=== PATIENT | male | born 1980 | race Caucasian/White ===

== ENCOUNTER → 2018-01-19 11:17 | Outpatient (REF) | payer OTHER, SELFPAY ==
[2018-01-19 13:40] LABS: Amphetamine/Metha Screen,Urine Negative ng/mL (<1000); Barbiturates Screen,Urine Negative ng/mL (<200); Benzodiazepines Screen,Urine Negative ng/mL (200); Cannabinoid Screen,Urine Positive ng/mL (<50); Cocaine Screen,Urine Negative ng/g (<300); Methadone Screen,Urine Negative ng/mL (<300); Opiate Screen,Urine Positive ng/mL (<300); Phencyclidine Screen,Urine Negative ng/mL (<25)
== END ==
LOC: LAB 11:17
PROVIDERS: Visit Provider Emergency Medicine
DX: Z79.899 Other long term (current) drug therapy (principal)
CPT/HCPCS: 80305

== ENCOUNTER → 2018-02-17 14:10 | Outpatient (REF) | payer OTHER, SELFPAY ==
[2018-02-17 20:08] LABS: Amphetamine/Metha Screen,Urine Positive ng/mL (<1000); Barbiturates Screen,Urine Negative ng/mL (<200); Benzodiazepines Screen,Urine Negative ng/mL (200); Cannabinoid Screen,Urine Positive ng/mL (<50); Cocaine Screen,Urine Negative ng/g (<300); Methadone Screen,Urine Negative ng/mL (<300); Opiate Screen,Urine Positive ng/mL (<300); Phencyclidine Screen,Urine Negative ng/mL (<25)
== END ==
LOC: LAB 14:10
PROVIDERS: Visit Provider Emergency Medicine
DX: Z79.899 Other long term (current) drug therapy (principal)
CPT/HCPCS: 80305

== ENCOUNTER → 2018-03-30 09:34 | Outpatient (REF) | payer OTHER, SELFPAY ==
[2018-03-30 14:10] LABS: Amphetamine/Metha Screen,Urine Negative ng/mL (<1000); Barbiturates Screen,Urine Negative ng/mL (<200); Benzodiazepines Screen,Urine Negative ng/mL (200); Cannabinoid Screen,Urine Positive ng/mL (<50); Cocaine Screen,Urine Negative ng/g (<300); Methadone Screen,Urine Negative ng/mL (<300); Opiate Screen,Urine Positive ng/mL (<300); Phencyclidine Screen,Urine Negative ng/mL (<25)
== END ==
LOC: LAB 09:34
PROVIDERS: Visit Provider Emergency Medicine
DX: Z79.899 Other long term (current) drug therapy (principal)
CPT/HCPCS: 80305

== ENCOUNTER → 2022-11-12 11:08 | Outpatient (CLI) | payer OTHER, SELFPAY ==
--- NOTE | 2022-11-12 11:41 | XR_ITS ---
FINAL REPORT CLINICAL HISTORY: left lower back pain radiating down left leg COMPARISON: none FINDINGS: AP, lateral, and oblique views of the lumbar spine were obtained. There is no acute fracture or acute malalignment. Vertebral body height is preserved. Mild degenerative disease, most pronounced at L2-3. No acute paraspinal abnormality is identified. IMPRESSION: No acute osseous abnormalities lumbar spine. Reviewed, Interpreted and Dictated by Miguelina Simeon MD Transcribed by Cait Perdomo Authenticated and [facility]
[2022-11-12 11:46] LABS: Basophils % 0.3 % (0.1-2.0); Eosinophils # 0.1 K/mm3 (0.0-0.4); Eosinophils % 0.6 % (0.1-12.0); Hemoglobin 16.8 g/dL (14.1-18.0); Lymphocytes # 1.8 K/mm3 (0.7-4.5); Lymphocytes % 13.4 % (10-50); Mean Corpuscular HGB Conc 32.9 g/dL (31.8-35.4); Mean Corpuscular Hemoglobin 32.7 pg (27.0-31.2); Mean Corpuscular Volume 99.4 fl (80-94); Mean Platelet Volume 9.7 fl (7.4-10.4); Monocytes # 0.8 K/mm3 (0.1-1.0); Monocytes % 6.1 % (1.7-9.3); Neutrophils # 10.4 K/mm3 (1.8-7.8); Neutrophils % 79.6 % (37.0-80.0); Platelet Count 261 K/mm3 (142-424); Red Blood Count 5.13 M/mm3 (4.60-6.20); Red Cell Distribution Width 13.4 % (11.5-17.5); White Blood Count 13.1 K/mm3 (4.8-10.8)
[2022-11-12 12:44] LABS: Alanine Aminotransferase 21 U/L (12-78); Albumin Level 4.7 g/dl (3.5-5.0); Albumin/Globulin Ratio 1.2 (1.1-1.8); Alkaline Phosphatase 66 U/L (38-126); Anion Gap 13.4 mEq/L (5-15); Aspartate Amino Transferase 30 U/L (17-59); Bilirubin,Total 0.4 mg/dl (0.2-1.3); Blood Urea Nitrogen 22 mg/dl (9-20); Calcium 9.3 mg/dl (8.4-10.2); Carbon Dioxide 27 mmol/L (22.0-30.0); Chloride 108 mmol/L (98-107); Estimated Glomerular Filt Rate 124 ml/min (>60); GFR (African American) 150 ML/MIN (>60); Globulin 3.8 g/dL (1.3-3.2); Glucose 106 mg/dl (74-100); Potassium 4.4 mmoL/L (3.5-5.1); Sodium 144 mmol/L (136-145); Total Protein,Serum 8.5 g/dl (6.3-8.2)
[2022-11-12 13:00] LABS: 25-OH Vitamin D, Total 30.4 ng/mL (30-100)
[2022-11-12 13:32] LABS: Vitamin B12 422 pg/mL (239-931)
== END ==
PROVIDERS: PCP Nurse Practitioner Family; Visit Provider Nurse Practitioner Family
DX: M54.42 Lumbago with sciatica, left side (principal); G62.9 Polyneuropathy, unspecified; R20.2 Paresthesia of skin; Z79.899 Other long term (current) drug therapy
CPT/HCPCS: 36415; 72110; 80053; 82306; 82607; 84443; 85025

== ENCOUNTER → 2022-12-09 15:00 | Outpatient (CLI) | payer OTHER, SELFPAY ==
--- NOTE | 2022-12-09 15:05 | MR_ITS ---
PROCEDURE INFORMATION: Exam: MR Cervical Spine Without Contrast Exam date and time: 12/09/2022 3:52 PM Age: 42 years old Clinical indication: Neck pain; Additional info: Left sided low back pain. Neck pain with numbness in right and left hand but right hand worse. TECHNIQUE: Imaging protocol: Magnetic resonance imaging of the cervical spine without contrast. COMPARISON: No relevant prior studies available. FINDINGS: Bones/joints: The cervical vertebral bodies are normal in height, without abnormal subluxation. The cervical lordosis is straightened. Spinal cord: Artifact limits evaluation of the cervical spinal cord on sagittal STIR images, without definitive cord edema on T2. No syrinx visualized involving the cervical spinal cord. Multilevel findings: Degenerative changes are noted at multiple cervical levels, with a decrease in the T2 signal intensity of the discs as well as disc bulge/osteophyte complexes. C2-C3: There is no significant spinal canal stenosis or neural foraminal narrowing. C3-C4: A small central disc herniation/protrusion is identified, with minimal to mild spinal canal stenosis. No significant neural foraminal narrowing bilaterally. C4-C5: Disc bulging visualized causing flattening of the ventral thecal sac, without significant spinal canal stenosis. No significant neural foraminal narrowing bilaterally. C5-C6: A central left-sided disc herniation/extrusion is visualized causing moderate spinal canal stenosis and slight flattening of the left ventral cervical spinal cord. Moderate left neural foraminal narrowing, with uncovertebral hypertrophy. No significant narrowing of the right neural foramen. C6-C7: Disc bulging visualized with hypertrophy of the ligamentum flavum causing mild spinal canal stenosis. No significant neural foraminal narrowing bilaterally. C7-T1: There is no significant spinal canal stenosis or neural foraminal narrowing. Soft tissues: No significant prevertebral soft tissue swelling. Brain: Cerebellar tonsillar ectopia visualized. The cerebellar tonsils extend approximately 4-5 mm below level the foramen magnum. The cerebellar tonsils are somewhat rounded in contour. Vasculature: A dominant right vertebral artery is identified. Evaluation of flow voids within the vertebral arteries is technically limited. IMPRESSION: 1. Degenerative changes are noted at multiple cervical levels, as described above. 2. At C5-C6, a central left-sided disc herniation/extrusion is visualized causing moderate spinal canal stenosis and slight flattening of the left ventral cervical spinal cord. 3. At C3-C4, a small central disc herniation/protrusion is identified, with minimal to mild spinal canal stenosis. 4. Mild spinal canal stenosis at C6-C7. 5. Moderate left neural foraminal narrowing at C5-C6. 6. Cerebellar tonsillar ectopia. 7. The cervical lordosis is straightened. This can be associated with muscle spasms.
== END ==
PROVIDERS: PCP Nurse Practitioner Family; Visit Provider Nurse Practitioner Family
DX: M54.42 Lumbago with sciatica, left side (principal); G62.9 Polyneuropathy, unspecified; M54.2 Cervicalgia
CPT/HCPCS: 72141; 76376

== ENCOUNTER 2023-08-13 12:34 | Emergency (ER) | payer OTHER, SELFPAY ==
[2023-08-13 12:36] VITALS: BP 138/94; PULSE 64; RESP 16; TEMP 36.8; O2SAT 94; BMI 52.9
--- NOTE | 2023-08-13 13:25 | EXP.UTC ---
Discharge Plan Disposition Patient Disposition: Home, Self-Care Condition: Good Prescriptions Prescriptions: New guaifenesin [Mucinex] 600 mg tablet extended release 12hr 1,200 mg PO BID PRN (Reason: cough) Qty: 20 0RF azithromycin [Zithromax Z-Genaro] 250 mg tablet See Rx Instructions .ROUTE .COMPLEX 5 Days Qty: 6 0RF Rx Instructions: For 250 mg dose pack: take 500 mg today (day 1), then 250 mg for 4 days (days 2-5) methylprednisolone [Medrol (Genaro)] 4 mg tablets,dose pack See Rx Instructions .Route .COMPLEX 6 Days Qty: 21 0RF Rx Instructions: taper pack; albuterol sulfate [Proventil HFA] 90 mcg/actuation HFA aerosol inhaler 1 - 2 inh inhalation Q6H PRN (Reason: shortness of breath or wheezing) Qty: 8.5 0RF fluticasone propionate [Flonase Allergy Relief] 50 mcg/actuation spray,suspension 1 - 2 spray intranasal DAILY Qty: 16 0RF Rx Instructions: administer into each nostril No Action clonidine HCl 0.2 mg tablet 0.2 mg PO Q12H Referrals Follow up/Referrals: Tamy Guevara APRN [Primary Care Provider] - See instructions Activity Restrictions/Add. Instructions Additional Instructions/Restrictions: Follow up with your Family Doctor if dizziness continues Take medication as prescribed Start antibiotic today. Be sure to complete entire prescription even if feeling better Monitor temp. Tylenol every 4 hours as needed and / or ibuprofen every 6 hours as needed ( As long as your primary care physician has told you that it ok to take both. For fever/aches/pains ER if no less than 101 despite Tylenol or Motrin Humidifier/vaporizer or hot steamy shower Inhaler every 4-6 hours as needed like we discussed. If unsure how to use it, ask pharmacist to demonstrate how. Should help open airways and improve cough, wheezing, and shortness of breath Mucinex for your cough Be sure to drink lots of water. *Start steroid today. Helps with inflammation therefore, cough and wheezing. Follow directions on the package. Reviewed side effects. Patient reports taking them before. Follow up IMMEDIATELY for new or worsening of symptoms OR no noticeable improvement over the next 48-72 hours. 911 immediately for any life threatening symptoms such as chest pain or difficulty breathing Clinical Impressions Clinical Impression: Bronchitis Sinusitis Qualifiers: Sinusitis location: unspecified location Chronicity: unspecified Qualified Code(s): J32.9 - Chronic sinusitis, unspecified Stand Alone Forms Stand Alone Forms: Work/School Release Instructions Patient Instructions: Sinusitis, Acute Bronchitis, DI for Sinusitis Discharge ED Provider: Destiny Linn [facility] [place] HPI General Stated complaint: dizzy, soa Mode of Arrival: Ambulatory Source of Information: Patient Limitations: No Limitations Time Seen by Provider: 08/13/23 13:25 Description of Symptoms (Recalled from Triage Doc. by RN): Patient reports shortness of breath, dizziness, cough and congestion for 4 days. HEENT Symptoms (Recalled from RN notes): Yes Resp Symptoms (Recalled from RN notes): No Skin Symptoms (Recalled from RN notes): No MS Symptoms (Recalled from RN notes): No Functional Status (Recalled from RN notes): wnl History of Present Illness Provider Complaint: Patient states that he has been sick for the last 4-5 days States that he has been having a productive cough at times, sinus congestion and pressure, chest congestion, feeling SOA after coughing, and dizziness at times States that today he was feeling a little better but still having pressure and congestion so he came in Denies dizziness at this time Related Data Home Medications Medication Instructions Recorded Confirmed clonidine HCl 0.2 mg tablet 0.2 mg PO Q12H 02/10/18 Previous Rx's Medication Instructions Recorded albuterol sulfate 90 mcg/actuation 1 - 2 inh inhalation Q6H PRN 08/13/23 aerosol
[2023-08-13 13:51] VITALS: BP 138/94; PULSE 64; RESP 16; TEMP 36.8; O2SAT 94
== END 2023-08-13 13:52 | disposition home or self-care (01) ==
PROVIDERS: Emergency Provider Nurse Practitioner; PCP Nurse Practitioner Family
DX: J20.9 Acute bronchitis, unspecified (principal); J01.90 Acute sinusitis, unspecified; F17.210 Nicotine dependence, cigarettes, uncomplicated
CPT/HCPCS: 99204; 99212; G0463

== ENCOUNTER 2024-02-22 15:11 | Emergency (ER) | payer OTHER, SELFPAY ==
[2024-02-22 15:55] VITALS: BP 137/90; PULSE 53; RESP 18; TEMP 37.1; O2SAT 100; BMI 35.6
--- NOTE | 2024-02-22 15:59 | ED_ITS ---
Discharge Plan Disposition Patient Disposition: Home, Self-Care Condition: Good Prescriptions Prescriptions: New sulfamethoxazole-trimethoprim [Bactrim DS] 800-160 mg Tablet 1 tab PO BID Qty: 20 0RF cephalexin 500 mg capsule 500 mg PO QID Qty: 40 0RF mupirocin 2 % ointment 1 applic topical TID 7 Days Qty: 15 0RF No Action clonidine HCl 0.2 mg tablet 0.2 mg PO Q12H albuterol sulfate [Proventil HFA] 90 mcg/actuation HFA aerosol inhaler 1 - 2 inh inhalation Q6H PRN (Reason: shortness of breath or wheezing) Qty: 8.5 0RF buprenorphine-naloxone 8-2 mg film See Rx Instructions .ROUTE .COMPLEX Patient Comments: DISSOLVE 1 AND 1/4 films UNDER THE TONGUE ONCE DAILY Rx Instructions: DISSOLVE 1 AND 1/4 films UNDER THE TONGUE ONCE DAILY Referrals Follow up/Referrals: Tamy Guevara APRN [Primary Care Provider] - See instructions Activity Restrictions/Add. Instructions Additional Instructions/Restrictions: Keep the affected area clean and dry. Follow up with your regular doctor. Take the antibiotics as directed and apply the topical antibiotics as directed. Apply warm wet compresses to the affected area three or four times per day. If you have itching at the site take over the counter benedryl. It will make you drowsy so don't drive or operate heavy machinery after taking it. GO TO THE ER FOR ANY WORSENING SYMPTOMS Clinical Impressions Clinical Impression: Tick bite, Cellulitis Instructions Patient Instructions: Cellulitis, DI for Insect Bites and Stings, Ceftriaxone Injection Discharge ED Provider: Adalid Jackman [facility] [place] General Stated complaint: tick bite/rash on left collar bone itching Time Seen by Provider: 02/22/24 15:59 History of Present Illness Provider Complaint: He states that 3 days ago he found a very small tick embedded on his left collar bone area. He removed the tick, but since then he has had worsening redness and swelling at the site. He is also have worsening itching at the site. He denies fever/chills/malaise. Related Data Home Medications Medication Instructions Recorded Confirmed clonidine HCl 0.2 mg tablet 0.2 mg PO Q12H 02/10/18 buprenorphine 8 mg-naloxone 2 mg See Rx Instructions .Route .COMPLEX 02/22/24 02/22/24 sublingual film Previous Rx's Medication Instructions Recorded albuterol sulfate 90 mcg/actuation 1 - 2 inh inhalation Q6H PRN 08/13/23 aerosol inhaler (Proventil HFA) shortness of breath or wheezing #8.5 grams cephalexin 500 mg capsule 500 mg PO QID #40 caps 02/22/24 mupirocin 2 % topical ointment 1 applic topical TID 7 days #15 02/22/24 grams sulfamethoxazole 800 1 tab PO BID #20 tabs 02/22/24 mg-trimethoprim 160 mg tablet (Bactrim DS) Allergies Allergy/AdvReac Type Severity Reaction Status Date / Time hydrocodone Allergy Intermediate Verified 02/22/24 16:16 [facility] Disclaimer: The information contained in this section may have been updated after the patient was seen, as this information can be updated by other users. Social History Smoking Status: Current every day smoker tobacco type: cigarettes packs per day: 10 alcohol intake: never substance use type: denies use current occupational status: employed Travel in the last 8 weeks: None household members: family housing: house ROS Obtained: Yes All systems reviewed & no additional complaints except as documented Constitutional Constitutional: Denies chills and Denies fever(s) Eyes Eyes: Denies eye discharge ENT Ears, Nose, Mouth, and Throat: Denies dizziness, Denies otalgia and Denies sore throat Cardiovascular Cardiovascular: Denies chest pain Respiratory Respiratory: Denies shortness of breath, Denies chest congestion, Denies cough, Denies stridor and Denies wheezing Gastrointestinal Gastrointestingal: Denies nausea or vomiting Musculoskeletal Musculoskeletal: Reports system reviewed and no additional complaints, except as documented and Denies arthralgias Integumentary/Breasts Skin/Breast: Reports as per HPI, Reports redness and Reports rash Neurologic Neurologic: Denies dizziness and Denies paresthesias Allergic/Immunologic Allergic/Immunologic: Denies wheezing Physical Exam General General appearance: alert and in no apparent distress Head Head exam: atraumatic, normocephalic and normal inspection Eye Eye exam: Present normal appearance, PERRL and EOMI ENT ENT exam: Present normal exam, normal oropharynx, mucous membranes moist, TM's normal bilaterally and normal external ear exam Neck Neck exam: Present normal inspection, full ROM and trachea midline; Absent meningismus or lymphadenopathy Chest Chest inspection: Present normal inspection and symmetric chest wall rise; Absent tenderness Respiratory Respiratory exam: Present normal lung sounds bilaterally; Absent respiratory distress Cardiovascular Cardiovascular exam: Present regular rate and normal rhythm; Absent JVD Abdominal Exam Abdominal exam: Present soft and normal bowel sounds; Absent distention, tenderness or guarding Extremities Exam Extremities exam: Present normal inspection, full ROM and normal capillary refill; Absent calf tenderness Back Exam Back exam: Present normal inspection; Absent tenderness Neurological Exam Neurological exam: Present alert and oriented X3 Psychiatric Psychiatric exam: Present normal affect and normal mood Skin Skin exam: Present erythema (There is an area of redness on his left upper chest that measures 2 cm X 4 cm. In its center there is a small scabbed area. There is no embedded tick parts. No drainage, no induration. ) Lymphatic Lymphatic Findings: no adenopathy Medical Decision Making Medical Records Medical records reviewed: No I reviewed the patient's medical records. Thiago Inquiry Pt receiving controlled substance: No
[2024-02-22] MEDS: cefTRIAXone 1GM VIAL 1 GM IM (16:57)
[2024-02-22] MEDS: LIDOCAINE 1% 5ML PF VIAL IM (16:57)
[2024-02-22 17:13] VITALS: BP 137/90; PULSE 53; RESP 18; TEMP 37.1; O2SAT 100
== END 2024-02-22 17:13 | disposition home or self-care (01) ==
PROVIDERS: Emergency Provider Nurse Practitioner Family; PCP Nurse Practitioner Family
DX: L03.313 Cellulitis of chest wall (principal); S20.362A Insect bite (nonvenomous) of left front wall of thorax, initial encounter; F17.210 Nicotine dependence, cigarettes, uncomplicated; W57.XXXA Bitten or stung by nonvenomous insect and other nonvenomous arthropods, initial encounter
CPT/HCPCS: 96372; 99212; 99214; G0463; J0696

== ENCOUNTER 2024-04-26 14:15 | Emergency (ER) | payer OTHER, SELFPAY ==
[2024-04-26 14:25] VITALS: BP 143/96; PULSE 73; RESP 20; TEMP 37.1; O2SAT 98; BMI 33.1
--- NOTE | 2024-04-26 14:43 | EXP.UTC ---
Discharge Plan Disposition Patient Disposition: Home, Self-Care Condition: Good Prescriptions Prescriptions: New mupirocin 2 % ointment 1 applic topical BID Qty: 22 0RF No Action buprenorphine-naloxone 8-2 mg film See Rx Instructions .ROUTE .COMPLEX Patient Comments: DISSOLVE 1 AND 1/4 films UNDER THE TONGUE ONCE DAILY Rx Instructions: DISSOLVE 1 AND 1/4 films UNDER THE TONGUE ONCE DAILY Referrals Follow up/Referrals: Tamy Guevara APRN [Primary Care Provider] - See instructions Activity Restrictions/Add. Instructions Additional Instructions/Restrictions: treatment measures for any spider bite include: ?Clean the bite with antibacterial soap and rinse with water. ?Apply ice packs with something between the pack and the skin for 20 minutes at a time; 3 times a day ?Elevate site to decrease swelling Apply antibiotic ointment as prescribed. Watch for signs of infection such redness, swelling, developing necrosis or pus then return to the clinic or go to you PCP. Clinical Impressions Clinical Impression: Spider bite Instructions Patient Instructions: DI for Spider Bites Discharge ED Provider: Michelle Velasquez [facility] [place] General Stated complaint: spider bite right foot Mode of Arrival: Ambulatory Source of Information: Patient Limitations: No Limitations Time Seen by Provider: 04/26/24 14:43 Description of Symptoms (Recalled from Triage Doc. by RN): PATIENT C/O SPIDER BITE TO RIGHT ANKLE YESTERDAY HEENT Symptoms (Recalled from RN notes): No Resp Symptoms (Recalled from RN notes): No Skin Symptoms (Recalled from RN notes): Yes MS Symptoms (Recalled from RN notes): No Functional Status (Recalled from RN notes): WNL History of Present Illness Provider Complaint: Pt states that he feels as if he has been bitten by a brown recluse spider bite. He states that he was bitten last night and today there is a little more redness and a small blister in the center of the bite area. He states that the site if very itchy. He reports that he had his last tetanus at 12 yo. Related Data Home Medications Medication Instructions Recorded Confirmed buprenorphine 8 mg-naloxone 2 mg See Rx Instructions .Route .COMPLEX 02/22/24 04/26/24 sublingual film Previous Rx's Medication Instructions Recorded mupirocin 2 % topical ointment 1 applic topical BID #22 grams 04/26/24 Allergies Allergy/AdvReac Type Severity Reaction Status Date / Time hydrocodone Allergy Intermediate Verified 02/22/24 16:16 Worker's Comp Is this a Worker's Comp case?: No [facility] Disclaimer: The information contained in this section may have been updated after the patient was seen, as this information can be updated by other users. Medical History (Updated 04/26/24 @ 15:06 by Michelle Velasquez APRN) Hypertension Social History Smoking Status: Current every day smoker tobacco type: cigarettes packs per day: 10 alcohol intake: never substance use type: denies use current occupational status: employed Travel in the last 8 weeks: None household members: family housing: house ROS Obtained: Yes All systems reviewed & no additional complaints except as documented Constitutional Constitutional: Reports system reviewed and no additional complaints, except as documented Eyes Eyes: Reports system reviewed and no additional complaints, except as documented ENT Ears, Nose, Mouth, and Throat: Reports system reviewed and no additional complaints, except as documented Cardiovascular Cardiovascular: Reports system reviewed and no additional complaints, except as documented Respiratory Respiratory: Reports system reviewed and no additional complaints, except as documented Gastrointestinal Gastrointestingal: Reports system reviewed and no additional complaints, except as documented Genitourinary Male Genitourinary: Reports system reviewed and no additional complaints, except as documented Musculoskeletal Musculoskeletal: Reports system reviewed and no additional complaints, except as documented Integumentary/Breasts Skin/Breast: Reports system reviewed and no additional complaints, except as documented, Reports redness and Reports pruritus Neurologic Neurologic: Reports system reviewed and no additional complaints, except as documented Endocrine Endocrine: Reports system reviewed and no additional complaints, except as documented Hematologic/Lymphatic Henatologic/Lymphatic: Reports system reviewed and no additional complaints, except as documented Allergic/Immunologic Allergic/Immunologic: Reports system reviewed and no additional complaints, except as documented Physical Exam General General appearance: alert and in no apparent distress Head Head exam: atraumatic and normocephalic Eye Eye exam: Present normal appearance ENT ENT exam: Present normal exam and normal oropharynx Neck Neck exam: Present normal inspection Chest Chest inspection: Present normal inspection and symmetric chest wall rise Respiratory Respiratory exam: Present normal lung sounds bilaterally Cardiovascular Cardiovascular exam: Present regular rate, normal rhythm and normal heart sounds Abdominal Exam Abdominal exam: Present soft and normal bowel sounds Extremities Exam Extremities exam: Present normal inspection Back Exam Back exam: Present normal inspection Neurological Exam Neurological exam: Present alert and oriented X3 Psychiatric Psychiatric exam: Present normal affect and normal mood Skin Skin exam: Present other Expanded Skin Exam Type of lesion: Present bite/sting Distribution: RLE Description: Present size (pen head sized with raised center like blister. Slight redness around site ) and erythematous Lymphatic Lymphatic Findings: no adenopathy Medical Decision Making Thiago Inquiry Pt receiving controlled substance: No Thiago was queried for this patient: No Vital Signs: 04/26/24 14:25 Temperature 98.8 F Temperature Source Oral Pulse Rate [Left Brachial] 73 Respiratory Rate 20 Blood Pressure [Left Arm] 143/96 H Blood Pressure Mean [Left Arm] 111 Blood Pressure Source [Left Arm] Automatic Cuff Blood Pressure Position [Left Arm] Sitting 02 Sat by Pulse Oximetry 98 Oxygen Delivery Method Room Air
[2024-04-26] MEDS: TET/DIPHTH/PERT-ADULT 0.5ML SYRINGE 0.5 ML IM (14:57)
[2024-04-26 15:06] VITALS: BP 143/96; PULSE 73; RESP 20; TEMP 37.1; O2SAT 98
== END 2024-04-26 15:13 | disposition home or self-care (01) ==
PROVIDERS: Emergency Provider Nurse Practitioner Family; PCP Nurse Practitioner Family
DX: T63.301A Toxic effect of unspecified spider venom, accidental (unintentional), initial encounter (principal)
CPT/HCPCS: 90471; 90715; 99212; 99214; G0463

== ENCOUNTER 2024-06-16 10:44 | Emergency (ER) | payer OTHER, SELFPAY ==
[2024-06-16 10:45] VITALS: BP 139/90; PULSE 83; RESP 18; TEMP 37.3; O2SAT 96; BMI 32.1
--- NOTE | 2024-06-16 10:58 | EXP.UTC ---
Discharge Plan Disposition Patient Disposition: Home, Self-Care Condition: Good Prescriptions Prescriptions: New amoxicillin 875 mg tablet 875 mg PO Q12H Qty: 20 0RF methylprednisolone [Medrol (Genaro)] 4 mg tablets,dose pack See Rx Instructions .Route .COMPLEX 6 Days Qty: 21 0RF Rx Instructions: taper pack; fluticasone propionate [Flonase Allergy Relief] 50 mcg/actuation spray,suspension 2 spray intranasal DAILY Qty: 16 0RF Rx Instructions: administer into each nostril daily No Action buprenorphine-naloxone 8-2 mg film See Rx Instructions .ROUTE .COMPLEX Patient Comments: DISSOLVE 1 AND 1/4 films UNDER THE TONGUE ONCE DAILY Rx Instructions: DISSOLVE 1 AND 1/4 films UNDER THE TONGUE ONCE DAILY mupirocin 2 % ointment 1 applic topical BID Qty: 22 0RF Referrals Follow up/Referrals: Tamy Guevara APRN [Primary Care Provider] - See instructions Activity Restrictions/Add. Instructions Additional Instructions/Restrictions: *Monitor Temp, Over the counter Motrin or Tylenol as directed/as needed Tylenol every 4 hours and Motrin every 6 hours (as long as your family doctor has told you that you can take it) for fever or pain. and straight to ER if unable to lower temp less than 101.0 after medication given Take medication as prescribed *Sleep elevated *Humidifier/Vaporizer *Flonase 2 sprays in each nostril daily but be aware that it may take 2-3 days before you notice improvement Follow up IMMEDIATELY for new or worsening symptoms or no Noticeable improvement over the next 48-72 hours. 911 for difficulty breathing or swallowing You were tested for today for COVID19 your test result should be back in the next 24 hours, you may check your results on the [facility] [employer] [facility] Clinical Impressions Clinical Impression: Otitis media Qualifiers: Otitis media type: unspecified Laterality: right Qualified Code(s): H66.91 - Otitis media, unspecified, right ear Instructions Patient Instructions: Middle Ear Infection, Fluticasone Nasal [place] Print Language Print Language: Lithuanian Discharge ED Provider: Destiny Linn [facility] [place] [facility] [place] General Stated complaint: ear pain, dizzy Mode of Arrival: Ambulatory Source of Information: Patient Limitations: No Limitations Time Seen by Provider: 06/16/24 10:58 Description of Symptoms (Recalled from Triage Doc. by RN): ear infection,covid symptoms HEENT Symptoms (Recalled from RN notes): Yes Resp Symptoms (Recalled from RN notes): No Skin Symptoms (Recalled from RN notes): No MS Symptoms (Recalled from RN notes): No Functional Status (Recalled from RN notes): na History of Present Illness Provider Complaint: Patient states that he has been having pain in his right ear and pressure and feeling off balance like he gets when he has an ear infection states that he does want to get tested for COVID his mother is elderly and doesnt want to be around her if he may have COVID Related Data Home Medications ?Medication ?Instructions ?Recorded ?Confirmed buprenorphine 8 mg-naloxone 2 mg See Rx Instructions .Route .COMPLEX 02/22/24 04/26/24 sublingual film Previous Rx's ?Medication ?Instructions ?Recorded mupirocin 2 % topical ointment 1 applic topical BID #22 grams 04/26/24 amoxicillin 875 mg tablet 875 mg PO Q12H #20 tabs 06/16/24 fluticasone propionate 50 2 spray intranasal DAILY #16 grams 06/16/24 mcg/actuation nasal spray,suspension (Flonase Allergy Relief) methylprednisolone 4 mg tablets in See Rx Instructions .Route 06/16/24 a dose pack (Medrol (Genaro)) .COMPLEX 6 days #21 tabs Allergies Allergy/AdvReac Type Severity Reaction Status Date / Time hydrocodone Allergy Intermediate Verified 02/22/24 16:16 Worker's Comp Is this a Worker's Comp case?: No Is this an [facility] Worker's Comp?: No Is this a [place] Worker's Comp?: No [facility] Disclaimer: The information contained in this section may have been updated after the patient was seen, as this information can be updated by other users. Medical History (Updated 06/16/24 @ 11:02 by Destiny Linn APRN) Hypertension Social History Smoking Status: Current every day smoker tobacco type: cigarettes packs per day: 10 alcohol intake: never substance use type: denies use current occupational status: employed Travel in the last 8 weeks: None household members: family housing: house ROS Obtained: Yes All systems reviewed & no additional complaints except as documented and Yes Systems reviewed as appropriate & no additional complaints except as documented Constitutional Constitutional: Reports system reviewed and no additional complaints, except as documented and Reports as per HPI ENT Ears, Nose, Mouth, and Throat: Reports system reviewed and no additional complaints, except as documented, Reports as per HPI, Reports dizziness and Reports otalgia Cardiovascular Cardiovascular: Reports system reviewed and no additional complaints, except as documented and Reports as per HPI Respiratory Respiratory: Reports system reviewed and no additional complaints, except as documented and Reports as per HPI Gastrointestinal Gastrointestingal: Reports system reviewed and no additional complaints, except as documented and as per HPI Neurologic Neurologic: Reports dizziness Physical Exam General General appearance: alert and in no apparent distress ENT ENT exam: Present mucous membranes moist Expanded ENT Exam TM/Canal exam: Right TM: erythema and bulging Respiratory Respiratory exam: Present normal lung sounds bilaterally; Absent respiratory distress or wheezes Cardiovascular Cardiovascular exam: Present regular rate, normal rhythm and normal heart sounds Neurological Exam Neurological exam: Present alert, oriented X3 and normal gait Medical Decision Making [place] Inquiry Pt receiving controlled substance: No [place] was queried for this patient: No Vital Signs: 06/16/24 10:45 Temperature 99.2 F Temperature Source Oral Pulse Rate [Left] 83 Respiratory Rate 18 Blood Pressure [Left Arm] 139/90 Blood Pressure Mean [Left Arm] 106 02 Sat by Pulse Oximetry 96 Oxygen Delivery Method Room Air Orders (Tests/Meds): ORDERS Category Date Time Status Covid-19 Nasal PCR ([facility]) Routine Lab 06/16/24 10:57 Ordered
[2024-06-16 11:12] VITALS: BP 139/90; PULSE 83; RESP 18; TEMP 37.3; O2SAT 96
== END 2024-06-16 11:13 | disposition home or self-care (01) ==
PROVIDERS: Emergency Provider Nurse Practitioner; PCP Nurse Practitioner Family
DX: H66.91 Otitis media, unspecified, right ear (principal); R42 Dizziness and giddiness; H92.01 Otalgia, right ear
CPT/HCPCS: 87635; 99212; 99214; G0463